=== PATIENT | female | born 1945 | race Caucasian/White ===

== ENCOUNTER → 2018-06-24 | Outpatient (CLI) | payer OTHER, BC ==
[~2018-06-24] MED LIST: ASPIRIN EC81 M1 PO; BIOTIN1 M1 PO; BIOTIN2500 MCG PO; CIPRO500 MG PO; FISH OIL 1,001000 M1 PO; FLAGYL500 MG PO; FLOMAX0.4 MG PO; IBUPROFEN 600600 M1 PO; MAGNESIUM OXID400 MG PO; MAGNESIUM250 M1 PO; MULTIVITAMIN; NEXIUM40 MG PO; NORCO 5-325 TA1 EACH PO; OS-CAL 500+D C1 EACH PO; SERTRALINE HCL50 MG PO; TYLENOL325 MG PO; VITAMIN D; VITAMIN D1000 UNI1 PO; WELCHOL 625 MG625 MG PO; ZOLOFT100 MG PO
--- NOTE | ~2018-06-24 | 2DMMODE ---
[facility] [place] [address] 2 D/M-MODE ECHOCARDIOGRAM Name: LEONARDO DICKINSON Room #: REG [facility]#: [id number] Admission: 06/24/18 Attend Phys: Rachel Guallpa, Discharge: Date of : 43 Date of Service: 06/24/18 1558 Report #: [id number] THIS REPORT FOR: //name// APPROVED REPORT Study performed: 06/24/2018 10:37:45 EXAM: Comprehensive 2D, Doppler, and color-flow Echocardiogram Patient Location: Out-Patient Room #: Echo lab 2 Status: routine BSA: 1.74 HR: 77 bpm BP: 132/88 mmHg Rhythm: NSR Other Information Study Quality: Good Indications Dyspnea 2D Dimensions RVDd: 27.77 mm IVSd: 10.66 (7-11mm) LVOT Diam: 18.96 (18-24mm) LVDd: 43.88 mm PWd: 11.39 (7-11mm) Ascending Ao: 33.01 (22-36mm) LVDs: 31.52 (25-40mm) Aortic Root: 34.00 mm IVC: 17.00 mm Volumes Left Atrial Volume (Systole) Single Plane 4CH: 36.26 mL Single Plane 2CH: 29.31 mL LA ESV Index: 21.00 mL/m2 Aortic Valve AoV Peak Dev.: 1.51 m/s AO Peak Gr.: 9.08 mmHg LVOT Max P.59 mmHg LVOT Max V: 1.07 m/s JAMILA Vmax: 2.01 cm2 AI Vmax: 3.91 m/s AI [place]: 1.66 m/s2 AI PHT: 683.30 ms Mitral Valve [facility] [address] [place] [address] 2 D/M-MODE ECHOCARDIOGRAM Name: LEONARDO DICKINSON [place] Room #: REG [facility]#: [id number] Admission: 06/24/18 Attend Phys: Rachel Guallpa, Discharge: Date of : 43 Date of Service: 06/24/18 1558 Report #: [id number] E/A Ratio: 0.5 MV Decel. Time: 238.30 ms MV E Max Dev.: 0.51 m/s MV A Dev.: 0.95 m/s MV PHT: 69.11 ms IVRT: 124.57 ms Pulmonary Valve PV Peak Dev.: 0.92 m/s PV Peak Gr.: 3.36 mmHg Pulmonary Vein P Vein S: 0.46 m/s P Vein A: 0.29 m/s P Vein D: 0.26 m/s P Vein A Dur.: 124.6 msec P Vein S/D Ratio: 1.77 Tricuspid Valve TR Peak Dev.: 2.58 m/s TR Peak Gr.: 26.67 mmHg PA Pressure: 31.00 mmHg Left Ventricle The left ventricle is normal size. There is normal LV segmental wall motion. There is normal left ventricular wall thickness. The left ventricular systolic function is normal. The left ventricular ejection fraction is within the normal range. LVEF is 55-60%. Grade I - abnormal relaxation pattern. Right Ventricle The right ventricle is normal size. The right ventricular systolic function is normal. Atria The left atrium size is normal. The right atrium size is normal. Aortic Valve The aortic valve is normal in structure. Trace to mild aortic regurgitation. There is no aortic valvular stenosis. Mitral Valve The mitral valve is normal in structure. Trace mitral regurgitation. No evidence of mitral valve stenosis. Tricuspid Valve The tricuspid valve is normal in structure. There is trace tricuspid regurgitation. Estimated PAP 31 mmHg. There is no pulmonary [address] [address] 2 D/M-MODE ECHOCARDIOGRAM Name: LEONARDO DICKINSON Room #: REG CL [facility]#: [id number] Admission: 06/24/18 Attend Phys: Rachel Guallpa, Discharge: Date of : 43 Date of Service: 06/24/18 1558 Report #: [id number] hypertension. Pulmonic Valve The pulmonary valve is normal in structure. Trace pulmonic regurgitation. Great Vessels The aortic root is normal in size. IVC is normal in size and collapses >50% with inspiration. Pericardium There is no pericardial effusion. <Conclusion> The left ventricle is normal size. LVEF is 55-60%. The aortic valve is normal in structure. Trace to mild aortic regurgitation. The mitral valve is normal in structure. Trace mitral regurgitation. The tricuspid valve is normal in structure. There is trace tricuspid regurgitation. Estimated PAP 31 mmHg. There is no pulmonary hypertension. The pulmonary valve is normal in structure. Trace pulmonic regurgitation. There is no pericardial effusion. <ELECTRONICALLY SIGNED> By: Asher Solis MD 06/24/18 1558 1558 1558 Asher Solis MD /INF
--- NOTE | ~2018-06-24 | EXE ---
[facility] [place] [address] STRESS ECHOCARDIOGRAM Name: LEONARDO DICKINSON [id number] Admission: 06/24/18 Attend Phys: Rachel Guallpa, Discharge: Date of : 43 Date of Service: 06/25/18 0819 Report #: [id number] THIS REPORT FOR: //name// APPROVED REPORT Study performed: 06/24/2018 10:56:31 Exam: Stress Echocardiogram Indication: Dyspnea Patient Location: Out-Patient Stress Nurse: Anna Marie Moody RN Room #: Echo lab 2 Status: routine Ht: 5 ft 3 in HR: 74 bpm BP: 132/88 mmHg Rhythm: NSR Medical History Exercise History: Physically active Procedure The patient underwent an Exercise Stress Test using the Cezar Protocol. Blood pressure, heart rate, and EKG were monitored. An Echocardiogram was performed by diamond powder technician in four stages in quad fashion. At peak stress, four selected images were obtained and placed side by side with resting images for comparison. Stress Test Details Stress Test: Exercise stress testing was performed using a Cezar protocol. HR Resting HR: 74 bpm Max Heart Rate (APMHR): 146 bpm Max HR Achieved: 157 bpm Target HR (85% APMHR): 124 bpm % of APMHR: 107 Recovery HR: 90 bpm HR response to stress: Normal HR response to stress BP Resting BP: 132/88 mmHg Max BP: 170/68 mmHg Recovery BP: 138/72 mmHg BP response to stress: Normal blood pressure response to stress. ECG [facility] [address] [address] STRESS ECHOCARDIOGRAM Name: LEONARDO DICKINSON [place] Room #: REG CL [facility]#: [id number] Admission: 06/24/18 Attend Phys: Rachel Guallpa, Discharge: Date of : 43 Date of Service: 06/25/18 0819 Report #: [id number] Resting ECG: Sinus Rhythm Stress ECG: Sinus Rhythm ST Change: Normal Maximum ST Deviation: 0 mm Arrhythmia: None Recovery ECG: Sinus Rhythm Recovery ST Change: Normal Recovery ST Deviation: 0 mm Recovery Arrhythmia: None Clinical Reason for Termination: Maximal effort Stress Symptoms: Dyspnea Exercise duration: 5 min 52 sec Highest Stage Achieved: Stage 2: 2.5 mph at 12% grade. Exercise capacity: 7 METs Overall Exercise Capacity for Age: Average Angina Score: None Stress ECG Conclusion Clinical: Non-ischemic ECG: Non-ischemic Emreson Treadmill Score is 5.0 which is Low risk. Pre-Stress Echo The resting Echocardiogram showed normal left ventricular contractility with an estimated Ejection Fraction of about >55%. Post-Stress Echo The stress Echocardiogram showed normal left ventricular contractility with an estimated Ejection Fraction of about 65-70%. Clinical Normal augmentation of myocardial wall segments using a 17 segment model. Conclusion Clinical Response: Non-ischemic Exercise Capacity: Average Stress ECG Response: Non-ischemic Stress Echo Images: Non-ischemic The left ventricle is normal in size and wall thickness in both the rest and stress images. Normal stress echocardiogram with maximal exercise stress. Other Information [place] [address] [place] [address] STRESS ECHOCARDIOGRAM Name: LEONARDO DICKINSON [place] Room #: REG CL [facility].#: [id number] Admission: 06/24/18 Attend Phys: Rachel Guallpa, Discharge: Date of : 43 Date of Service: 06/25/18818 Report #: [id number] Study Quality: Adequate <Conclusion> The left ventricle is normal in size and wall thickness in both the rest and stress images. Normal stress echocardiogram with maximal exercise stress. <ELECTRONICALLY SIGNED> By: Jaren Young MD, FACC 06/25/18818 8 8 Jaren Young MD, FACC /INF
== END ==
LOC: CV 08:06
DX: R06.09 Other forms of dyspnea (principal)

== ENCOUNTER → 2020-07-11 | Outpatient (CLI) | payer OTHER | LOC: SJCVC 13:56 | PROVIDERS: ATTEND Internal Medicine Cardiovascular Disease | DX: R07.9 Chest pain, unspecified (principal); E78.00 Pure hypercholesterolemia, unspecified; R06.02 Shortness of breath; R53.83 Other fatigue; I65.23 Occlusion and stenosis of bilateral carotid arteries; F41.9 Anxiety disorder, unspecified; Z79.899 Other long term (current) drug therapy; Z88.2 Allergy status to sulfonamides; Z88.0 Allergy status to penicillin; Z82.49 Family history of ischemic heart disease and other diseases of the circulatory system ==

== ENCOUNTER → 2020-07-28 | Outpatient (CLI) | payer OTHER | LOC: SJCVCIMAG 10:28 | PROVIDERS: ATTEND Internal Medicine Cardiovascular Disease | DX: I35.1 Nonrheumatic aortic (valve) insufficiency (principal); R53.83 Other fatigue; I10 Essential (primary) hypertension; I25.10 Atherosclerotic heart disease of native coronary artery without angina pectoris; E78.5 Hyperlipidemia, unspecified ==

== ENCOUNTER → 2021-04-26 | Outpatient (CLI) | payer OTHER | LOC: CAT 14:56 | PROVIDERS: ATTEND Internal Medicine Cardiovascular Disease | DX: Z13.6 Encounter for screening for cardiovascular disorders (principal) ==

== ENCOUNTER → 2021-04-26 | Outpatient (CLI) | payer OTHER | LOC: SJCVC 13:55 | PROVIDERS: ATTEND Internal Medicine Cardiovascular Disease | DX: E78.00 Pure hypercholesterolemia, unspecified (principal); I65.23 Occlusion and stenosis of bilateral carotid arteries; R00.2 Palpitations; F32.9 Major depressive disorder, single episode, unspecified; F12.90 Cannabis use, unspecified, uncomplicated; Z82.49 Family history of ischemic heart disease and other diseases of the circulatory system; Z79.899 Other long term (current) drug therapy; Z88.0 Allergy status to penicillin; Z88.2 Allergy status to sulfonamides ==